=== PATIENT | male | born 1950 | race Caucasian/White ===

== ENCOUNTER → 2018-02-22 | Outpatient (REF) ==
[~2018-02-22] MED LIST: BACL-51 PO; DIGO250T80 PO; METH4TAB66 PO; OXYC-869 PO
[2018-02-22 07:00] LABS: LDL CHOLESTEROL 178 mg/dl
== END ==
DX: Z02.9 Encounter for administrative examinations, unspecified (principal)

== ENCOUNTER → 2019-02-28 | Outpatient (REF) ==
[2019-02-28 08:44] LABS: LDL CHOLESTEROL 175 mg/dl
== END ==
DX: Z02.9 Encounter for administrative examinations, unspecified (principal)